=== PATIENT | female | born 1995 | race Two or more races ===

== ENCOUNTER 2018-11-24 11:26 | Emergency (ER) | payer OTHER ==
[2018-11-24 11:35] VITALS: BP 120/68
--- NOTE | 2018-11-24 12:24 | ED Physician Documentation ---
PD HPI LOWER EXT INJURY - Stated complaint Stated Complaint: RT FOOT PX - Chief complaint Chief Complaint: Ext Problem - History obtained from History obtained from: Patient - History of Present Illness PD HPI LOW EXT INJURY LOCATION: Right, Ankle, Foot Type of injury: Twist Where injury occurred: Work Timing - onset: Yesterday Timing - details: Abrupt onset Severity Comments: moderate Improved by: Rest, Immobilization Worsened by: Moving Associated symptoms: Swelling Contributing factors: No: Anticoagulated Similar symptoms before: No diagnosis Review of Systems Constitutional: denies: Fever, Chills Eyes: denies: Discharge Cardiac: denies: Chest pain / pressure GI: denies: Abdominal Pain Skin: denies: Rash Musculoskeletal: reports: Extremity pain, Joint pain. denies: Neck pain PD PAST MEDICAL HISTORY - Past Medical History Past Medical History: No Cardiovascular: None Respiratory: None Neuro: None Endocrine/Autoimmune: None GI: None TISSUE PACKER: None : None HEENT: None Psych: None Musculoskeletal: None Derm: None - Past Surgical History Past Surgical History: No - Social History Does the pt smoke?: Yes Smoking Status: Current every day smoker Does the pt drink ETOH?: Yes ETOH Use: Wine Does the pt have substance abuse?: No - Immunizations Immunizations are current?: Yes - POLST Patient has POLST: No PD ED PE NORMAL - General General: Alert and oriented X 3, No acute distress - HEENT HEENT: Atraumatic, PERRL, EOMI, Ears normal - Derm Derm: Normal color - Extremities Extremities: No deformity, Normal ROM s pain. No: No tenderness to palpate (The patient has tenderness to palpation of the right ankle and proximal foot, there is no obvious deformity or crepitus. There is mild lateral swelling. The patient has a normal dorsalis pedis pulse and normal cap refill. The patient has no proximal fibular head tenderness and has normal range of motion of the hip, knee pain) Results - Vitals Vitals: Vital Signs - 24 hr 11/24/18 11:30 Temperature 36.6 C Heart Rate 65 Respiratory 16 Rate Blood Pressure 120/68 O2 Saturation 100 Oxygen O2 Source Room air - Rads (name of study) Ankle/Foot Radiology: Final report received PD MEDICAL DECISION MAKING - ED course ED course: The patient will be given a splint to help give her some stability and does not need crutches at this time since she is Already weightbearing. The patient will follow up with primary for reevaluation and possible further workup as needed. The patient will return to the emergency department for any worsening or any concerns. Departure - Departure Disposition: 01 Home, Self Care Clinical Impression: Ankle sprain Qualifiers: Encounter type: initial encounter Involved ligament of ankle: other ligament Laterality: right Qualified Code(s): S93.491A - Sprain of other ligament of right ankle, initial encounter Condition: Good Instructions: ED Sprain Ankle Follow-Up: TUSHAR CORDOVA MD [Primary Care Provider] - Within 1 week Comments: Please follow-up with primary care. Please return for any worsening or any concerns
--- NOTE | 2018-11-24 12:42 | XRAY Report ---
Reason: injury Procedure Date: 11/24/2018 Accession Number: [id number] / [id number] Procedure: XR - Foot 3 View RT CPT Code: FULL RESULT: EXAM: RIGHT FOOT RADIOGRAPHY EXAM DATE: 11/24/2018 12:06 PM. CLINICAL HISTORY: Injury. Pain COMPARISON: None. TECHNIQUE: 3 views. FINDINGS: Bones: Normal. No fractures or bone lesions. Joints: Normal. No subluxations. Soft Tissues: Normal. No soft tissue swelling. IMPRESSION: Normal right foot radiography. [facility]
--- NOTE | 2018-11-24 12:45 | XRAY Report ---
Reason: injury Procedure Date: 11/24/2018 Accession Number: [id number] / [id number] Procedure: XR - Ankle 3 View RT CPT Code: FULL RESULT: EXAM: RIGHT ANKLE RADIOGRAPHY EXAM DATE: 11/24/2018 12:06 PM. CLINICAL HISTORY: Injury. Pain COMPARISON: None. TECHNIQUE: 3 views. FINDINGS: Bones: Normal. No fractures or bone lesions. Joints: Normal. No effusion. No subluxations. The ankle mortise is normally aligned. Soft Tissues: Minimal soft tissue swelling. IMPRESSION: Minimal soft tissue swelling; otherwise negative right ankle [facility]
== END 2018-11-24 13:10 | disposition home or self-care (01) ==
LOC: ED 11:26
DX: S93.491A Sprain of other ligament of right ankle, initial encounter (principal); X50.1XXA Overexertion from prolonged static or awkward postures, initial encounter; W31.9XXA Contact with unspecified machinery, initial encounter; Y99.0 Civilian activity done for income or pay; F17.200 Nicotine dependence, unspecified, uncomplicated
CPT/HCPCS: 99282